=== PATIENT | female | born 2000 | race Two or more races ===

== ENCOUNTER 2025-01-06 14:23 | Emergency (ER) | payer OTHER ==
[~2025-01-06] VITALS: Ht 157.5 cm; Wt 73.5 kg
[2025-01-06 16:31] LABS: BASO % 0.5 % (0.1-1.2); EOS # 0.10 (0.04-0.54); EOS % 1.3 % (0.7-7.0); LYMPH # 2.17 (1.18-3.74); LYMPH % 28.5 % (19.3-53.1); MEAN PLATELET VOLUME 11.10 fl (9.4-12.4); MONO # 0.41 (0.24-0.82); MONO % 5.4 % (4.7-12.5); NEUT # 4.88 (1.56-6.13); NEUT % 64.0 % (34.0-71.1); RED CELL DISTRIBUTION WIDTH 14.7 % (11.6-14.4)
== END 2025-01-06 19:49 | disposition home or self-care (01) ==
LOC: ER 14:23
PROVIDERS: General Practice
DX: O20.9 Hemorrhage in early pregnancy, unspecified (principal); O99.281 Endocrine, nutritional and metabolic diseases complicating pregnancy, first trimester; Z3A.01 Less than 8 weeks gestation of pregnancy

== ENCOUNTER 2025-01-10 15:42 | Inpatient (IN) | payer OTHER ==
[~2025-01-10] VITALS: Ht 160 cm; Wt 72.6 kg
[2025-01-10 16:24] VITALS: O2SAT 100
[2025-01-10] MEDS ORDERED: 0.9 % SODIUM CHLORIDE 1,000 ML IV ONE (16:45)
[2025-01-10] MEDS ORDERED: CEFTRIAXONE SODIUM 1,000 MG VIAL IV ONE (16:45)
[2025-01-10] MEDS ORDERED: CEFTRIAXONE SODIUM 1,000 MG VIAL ONE (17:32)
[2025-01-10 18:01] LABS: BASO % 0.4 % (0.1-1.2); EOS # 0.11 (0.04-0.54); EOS % 1.0 % (0.7-7.0); LYMPH # 1.62 (1.18-3.74); LYMPH % 14.3 % (19.3-53.1); MEAN PLATELET VOLUME 11.90 fl (9.4-12.4); MONO # 0.64 (0.24-0.82); MONO % 5.7 % (4.7-12.5); NEUT # 8.88 (1.56-6.13); NEUT % 78.4 % (34.0-71.1); RED CELL DISTRIBUTION WIDTH 15.3 % (11.6-14.4)
[2025-01-10 18:29] LABS: INR 1.02
[2025-01-10] MEDS ORDERED: MORPHINE SULFATE 2 MG/ML SYRINGE IV ONE (18:30)
[2025-01-10 19:08] LABS: ALT/SGPT 25.0 U/L (12-78); AST/SGOT 12.0 U/L (15-37); BILIRUBIN TOTAL 0.27 mg/dL (0.3-1.2); BUN CREA RATIO 21.0 (7.0-25.0); CREATININE SERUM 0.56 mg/dL (0.55-1.02); GFR 135.37; GLOBULINA 3.3 G/DL (2.4-3.5); GLUCOSE FASTING 116.0 mg/dL (65-100); HCG QUANTITATIVE 2937.0 mUI/mL (1-3); OSMOLALITY SERUM 280.0 MOSM/KG (275-295)
[2025-01-10 19:16] VITALS: BP 103/66
[2025-01-10 19:23] LABS: URINE APPEARANCE Clear; URINE BILIRRUBIN Negative (NEGATIVE); URINE BLOOD Small; URINE COLOR Yellow; URINE GLUCOSE Negative (NEGATIVE); URINE KETONE Negative (NEGATIVE); URINE LEUKOCYTE Negative; URINE NITRATE Negative; URINE PROTEIN Negative (NEGATIVE); URINE UROBILINOGEN 1.0 E.U./dl
[2025-01-10 19:26] LABS: URINE BACTERIA 19.1 uL (0.0-1933); URINE EPITHELIAL CELLS 6.2 uL (0.0-38.8); URINE RBC 118.0 uL (0.0-20.8); URINE WBC 10.2 uL (0.0-23.2)
[2025-01-10 19:27] LABS: URINE CAST 0.29 uL (0.0-1.40)
[2025-01-10 22:05] VITALS: BP 90/60
[2025-01-11 02:33] VITALS: BP 100/56
[2025-01-11] MEDS ORDERED: OXYTOCIN 1,000 ML IV SCH (07:30)
[2025-01-11] MEDS ORDERED: OXYTOCIN 10 UNITS/ML VIAL ONE (08:14)
[2025-01-11 08:16] VITALS: BP 96/59
== END 2025-01-11 15:34 | disposition home or self-care (01) | DRG 779 ==
LOC: ER 15:42 → OB/GYN 19:11
PROVIDERS: General Practice; ADMIT Specialist; ATTEND Specialist
PROC: BW4GZZZ Ultrasonography of Pelvic Region (ICD-10-PCS; principal; 2025-01-10)
DX: O03.4 Incomplete spontaneous abortion without complication (principal)